=== PATIENT | female | born 1975 | race Caucasian/White ===

== ENCOUNTER 2019-06-29 15:15 | Emergency (ER) | payer BC ==
[2019-06-29 15:34] VITALS: BP 122/94; PULSE 89; TEMP 97.6; BMI 27.3
[2019-06-29 15:45] LABS: EPITHELIAL CELLS FEW /hpf
[2019-06-29] MEDS ORDERED: ACETAMINOPHEN 500 MG TABLET (FP) PO ONE (15:49)
[2019-06-29] MEDS ORDERED: ACETAMINOPHEN 500 MG TABLET (FP) ONE (15:51)
--- NOTE | 2019-06-29 16:05 | PDOC ---
Documentation entered by Angelica Arias SCRIBE, acting as scribe for Danielle Potts DO. Danielle Potts, : This documentation has been prepared by the Juana michel Mackenzie, SCRIBE, under my direction and personally reviewed by me in its entirety. I confirm that the documentation accurately reflects all work , treatment, procedures, and medical decision making performed by me. History of Present Illness - General Chief Complaint: Back Pain Stated Complaint: lower left back pain Time Seen by Provider: 06/29/19 15:16 History Source: Patient Exam Limitations: No Limitations - History of Present Illness Initial Comments: The patient is a 43 year old female, with a significant PMH of recurring lower back pain (has been diagnosed with piriformis syndrome, herniated discs, and has seen several specialists), asthma, recently diagnosed nephroptosis and a recently diagnosed ovarian cyst who presents to the emergency department with 3 days of acute pelvic pain and accompanying lower back pain/spasms. Patient states 10 months ago she was admitted to the ER 4 days with acute lower back pain. She states seeing several specialists over the past few months (PTs, chiropractors, pain management specialists) and nothing alleviated the pain until 2 months ago when she received a cortisone shot. Pt was diagnosed with an ovarian cyst in February (3.5 cm as of last ultrasound at [facility] 1 month ago ). Pt states she comes in today because 3 days ago she started having lower back pain/ spasms again and a persistent acute pain in her left pelvic region. Lower back pain is worsened by any bending or twisting movement and patient has very limited range of motion in her torso, patient notes taking half a muscle relaxant 1 hour [employer]. The patient denies chest pain, shortness of breath, headache and dizziness. Denies fever, chills, nausea, vomiting, diarrhea and constipation. Denies dysuria, frequency, urgency and hematuria LMP: 06/20 Allergies: NKA Past surgical history: 10 months ago Family hx: maternal breast cancer and colorectal cancer PCP: Dr. Pinzon 06/29/19 16:37 Past History - Past Medical History Allergies/Adverse Reactions: Allergies Allergy/AdvReac Type Severity Reaction Status Date / Time Sulfa (Sulfonamide Allergy Intermediate Verified 06/29/19 15:23 Antibiotics) latex AdvReac Severe Verified 06/29/19 15:23 Home Medications: Ambulatory Orders Cyclobenzaprine HCl [Flexeril 10 mg] 10 mg PO HS PRN 06/29/19 Levothyroxine [Synthroid -] 112 mcg PO DAILY 06/29/19 Meloxicam 7.5 mg PO BID 06/29/19 Montelukast Sodium [Singulair] 10 mg PO DAILY 06/29/19 Review of Systems - Review of Systems Able to Perform ROS?: Yes Comments:: GENERAL/CONSTITUTIONAL: No fever or chills. HEAD, EYES, EARS, NOSE AND THROAT: No change in vision. No ear pain or discharge. No sore throat. GASTROINTESTINAL: (+)Decreased control over urination and bowel movements. No nausea, vomiting, diarrhea or constipation. GENITOURINARY: No dysuria or frequency. . CARDIOVASCULAR: No chest pain or shortness of breath. RESPIRATORY: No cough, wheezing, or hemoptysis. MUSCULOSKELETAL: (+) Acute lower back pain. (+)Acute pelvic pain. No joint or muscle swelling or pain. SKIN: No rash NEUROLOGIC: No headache, vertigo, loss of consciousness, or change in strength/ sensation. ENDOCRINE: No increased thirst. No abnormal weight change. HEMATOLOGIC/LYMPHATIC: No anemia, easy bleeding, or history of blood clots. ALLERGIC/IMMUNOLOGIC: No hives or skin allergy. 06/29/19 16:37 *Physical Exam - Vital Signs Last Vital Signs Temp Pulse Resp BP Pulse Ox 97.6 F 89 18 122/94 100 06/29/19 15:16 06/29/19 15:16 06/29/19 15:16 06/29/19 15:16 06/29/19 15:16 - Physical Exam Constitutional: Awake, alert, oriented. No acute distress. Head: Normocephalic. Atraumatic Eyes: PERRL. EOMI. Conjunctivae are not pale. ENT: Mucous membranes are moist and intact. Posterior pharynx without exudates or erythema. Uvula midline. Neck: Supple. Full ROM. No lymphadenopathy. Cardiovascular: Regular rate. Regular rhythm. S1, S2 regular. Distal pulses are 2+ and symmetric. Pulmonary/Chest: No evidence of respiratory distress. Clear to auscultation bilaterally No wheezing, rales or rhonchi. Abdominal: (+)Left pelvic tenderness. Soft and non-distended. No rebound, guarding or rigidity. No organomegaly. No palpable masses. Good bowel sounds. Back: (+)Left paraspinal tenderness in very low back. (+)No midline tenderness or deformities. Musculoskeletal: No edema. No cyanosis. No clubbing. Full range of motion in all extremities. Nocalf tenderness. Radial/pedal pulses are intact and 2+ bilaterally Skin: Skin is warm and dry. No petechiae. No purpura. Neurological: Alert and oriented to person, place, and time. Cranial nerves II -XII are grossly intact. Normal speech. Strength is grossly symmetric. No sensory deficits. Psychiatric: Good eye contact. Normal interaction, affect and behavior. 06/29/19 16:38 ED Treatment Course - LABORATORY CBC & Chemistry Diagram: 06/29/19 16:16 06/29/19 16:16 - ADDITIONAL ORDERS Additional order review: Laboratory Results 06/29/19 06/29/19 15:25 15:25 Urine Color Yellow Urine Appearance Clear Urine pH 6.0 Urine Protein Negative Urine Glucose (UA) Negative Urine Ketones Negative Urine Blood Trace-intact Urine Nitrite Negative Urine Bilirubin Negative Urine Urobilinogen 0.2 Ur Leukocyte Esterase Negative Urine RBC 0-2 Urine WBC 0-2 Ur Transition Epith Cell Few Urine HCG, Qual Negative - RADIOLOGY Radiology Studies Ordered: Category Date Time Status ABDOMEN & PELVIS CT W/O CONTR [CT] Stat CT Scan 06/29/19 15:47 Ordered TRANSVAGINAL ULTRASOUND US [US] Stat Ultrasound 06/29/19 15:45 Ordered - Medications Given in the ED: ED Medications Discontinued Medications Generic Name Dose Route Start Last Admin Trade Name Michael PRN Reason Stop Dose Admin Acetaminophen 1,000 mg 06/29/19 15:49 06/29/19 15:59 Tylenol - PO 06/29/19 15:50 1,000 mg ONCE ONE Administration Medical Decision Making - Medical Decision Making 06/29/19 16:01 a/p: 43yo female with hx of LBP on L since 4 days post for which she has had xrays, mri, ct and ovarian cyst since february with 3 days of severe LLQ pain , no diarrhea or constipation and worsening spasms in her low back -pt took flexeril and meloxicam [employer] -pt has seen multiple docs of last 10m -last ultrasound showed a L ovarian cyst measuring 3.5x2.3cm -will send for tvus -will send ua, ucg -concern for lbp- no midline ttp, stepoffs or deformities, no signs/symptoms of caude equina, ambulatory in the ER -limited ROM secondary to pain and pt is unwilling to try any movements -will give tylenol -will monitor and reassess 06/29/19 16:05 pt with trace amounts of blood in her urine, fdlmp was 2 weeks ago -will send for ct to eval poss of kidney stone as cause of L flank pain 06/29/19 16:43 ct without acute findings small L upper pole calculus that is nonobstructing no evidence of obstructive uropathy labs reviewed and stable pending ultrasound 06/29/19 18:24 pt in ultrasound 06/29/19 18:56 pt pending ultrasound read, pending reading on IOC pt will be signed out to the oncoming ED physician pending ultrasound read and further eval Discharge - Discharge Information Problems reviewed: Yes Clinical Impression/Diagnosis: Pelvic pain Condition: Stable - Follow up/Referral - Patient Discharge Instructions - Post Discharge Activity
[2019-06-29 16:27] LABS: ALBUMIN 3.9 g/dl (3.4-5.0); BILIRUBIN,TOTAL 0.5 mg/dl (0.2-1); CALCIUM 8.8 mg/dl (8.5-10); CREATININE 0.8 mg/dl (0.55-1.3); POTASSIUM 3.4 mmol/L (3.5-5.1); TOT PROT 7.1 g/dl (6.4-8.2)
[2019-06-29 16:29] LABS: BASO % 0.3 % (0-2.0); EOS % 2.4 % (0-4.5); HEMATOCRIT 40.9 % (32.4-45.2); HEMOGLOBIN 13.7 GM/dl (10.7-15.3); LYMPH % 30.1 % (8-40); MCH 29.8 pg (25.7-33.7); MCHC 33.4 g/dl (32.0-36.0); MEAN CELL VOLUME 89.1 fl (80-96); MEAN PLT VOLUME 8.7 fl (7.5-11.1); MONO % 6.4 % (3.8-10.2); NEUT % 60.8 % (42.8-82.8); PLATELET COUNT 292 K/MM3 (134-434); RBC 4.59 M/mm3 (3.60-5.2); RDW 11.4 % (11.6-15.6); WHITE BLOOD COUNT 8.7 K/mm3 (4.0-10.8)
--- NOTE | 2019-06-29 20:04 | PDOC ---
*Physical Exam - Vital Signs Last Vital Signs Temp Pulse Resp BP Pulse Ox 97.6 F 89 18 122/94 100 06/29/19 15:16 06/29/19 15:16 06/29/19 15:16 06/29/19 15:16 06/29/19 15:16 ED Treatment Course - LABORATORY CBC & Chemistry Diagram: 06/29/19 16:16 06/29/19 16:16 - ADDITIONAL ORDERS Additional order review: Laboratory Results 06/29/19 06/29/19 06/29/19 16:16 15:25 15:25 Sodium 132 L Potassium 3.4 L Chloride 103 Carbon Dioxide 25 Anion Gap 4 L BUN 16.0 Creatinine 0.8 Est GFR (CKD-EPI)AfAm 104.65 Est GFR (CKD-EPI)NonAf 90.30 Random Glucose 103 Calcium 8.8 Total Bilirubin 0.5 AST 16 ALT 22 Alkaline Phosphatase 51 Total Protein 7.1 Albumin 3.9 Urine Color Yellow Urine Appearance Clear Urine pH 6.0 Urine Protein Negative Urine Glucose (UA) Negative Urine Ketones Negative Urine Blood Trace-intact Urine Nitrite Negative Urine Bilirubin Negative Urine Urobilinogen 0.2 Ur Leukocyte Esterase Negative Urine RBC 0-2 Urine WBC 0-2 Ur Transition Epith Cell Few Urine HCG, Qual Negative 06/29/19 16:16 RBC 4.59 MCV 89.1 MCHC 33.4 RDW 11.4 L MPV 8.7 Neutrophils % 60.8 Lymphocytes % 30.1 Monocytes % 6.4 Eosinophils % 2.4 Basophils % 0.3 - Medications Given in the ED: ED Medications Discontinued Medications Generic Name Dose Route Start Last Admin Trade Name Freq PRN Reason Stop Dose Admin Acetaminophen 1,000 mg 06/29/19 15:49 06/29/19 15:59 Tylenol - PO 06/29/19 15:50 1,000 mg ONCE ONE Administration ED Progress Note - Progress Note Progress Note: Care of this patient received from Dr. Potts Pelvic ultrasound interpretation by Imaging medication tech: Bilateral ovarian follicles without evidence of cysts or masses. Small amount of endocervical fluid Results discussed in detail with interpreting radiologist, Dr. Patton: No evidence of moderate or large cyst in either ovary (i.e., 3.5 cm left ovarian cyst seen in previous studies). There is a 1 cm x 1.7 cm follicle in the left ovary. Results discussed with the patient, indicating that the left ovarian cyst has decreased in size. No other acute pathology found on this study. Since the patient's pain began after she stopped taking meloxicam and Flexeril for her chronic pelvic pain (her PMD suggested that she start weaning off these medications), she should temporarily resume taking these medications since they had controlled her pain. She may be able to taper off in the near future. Meanwhile, she should plan on following up with her PMD soon to review today's findings and the plan to resume the meloxicam/Flexeril. She should return to the ER if she has severe pain/nausea vomiting/fever Discharge - Discharge Information Problems reviewed: Yes Clinical Impression/Diagnosis: Pelvic pain Condition: Stable Disposition: HOME - Follow up/Referral - Patient Discharge Instructions Patient Printed Discharge Instructions: DI for Pelvic Pain Additional Instructions: followup with your general medical doctor within 2-3 days return to ER if you have more severe pain, vomiting or fever - Post Discharge Activity
== END 2019-06-29 21:02 | disposition home or self-care (01) ==
LOC: FER 15:15
DX: R10.2 Pelvic and perineal pain (principal); J45.909 Unspecified asthma, uncomplicated; M54.5 Low back pain; Z88.2 Allergy status to sulfonamides; Z91.040 Latex allergy status
CPT/HCPCS: 36415; 74176-TC; 76830-TC; 80053; 81003; 81015; 84703; 85025; 99283-25